=== PATIENT | male | born 1965 | race Caucasian/White ===

== ENCOUNTER 2017-06-06 16:12 | Inpatient (IN) | payer MEDICAID, MEDICARE, OTHER ==
[~2017-06-06] VITALS: Ht 177.8 cm; Wt 69.9 kg
[~2017-06-06 16:12] MED LIST: CLON1 PO; DIVA500T35 PO; FOLI1 PO; GABA-531 PO; LIDOP TD; LURA40 PO; MULT1CAP32 PO; OMEP20 PO; SERT50TA12 PO; THIA100 PO
[2017-06-06 18:01] LABS: BASOPHILS % (AUTO) 0.8 % (0.0-2.0); EOSINOPHILS % (AUTO) 1.1 % (1.0-6.0); HEMOGLOBIN 12.5 g/dL (13.5-17.5); LYMPHOCYTES # (AUTO) 4.6 K/uL (1.0-4.8); LYMPHOCYTES % (AUTO) 53.3 % (22.0-44.0); MEAN CORPUSCULAR HEMOGLOBIN 28.2 pg (26.0-34.0); MEAN CORPUSCULAR HGB CONC 33.7 G/dL (31.0-37.0); MEAN CORPUSCULAR VOLUME 84 fL (80-100); MONOCYTES # (AUTO) 0.6 K/uL (0.1-1.0); MONOCYTES % (AUTO) 7.1 % (2.0-9.0); NEUTROPHILS # (AUTO) 3.3 K/uL (1.8-7.7); NEUTROPHILS % (AUTO) 37.7 % (40.0-70.0); PLATELET COUNT (AUTO) 152 K/uL (150-450); RED BLOOD CELL COUNT(AUTO) 4.42 MIL/uL (4.50-5.90); RED CELL DISTRIBUTION WIDTH 28.1 % (11.5-14.5)
[2017-06-06 18:24] LABS: ANION GAP 15 mmol/L (8-16); CALCIUM, TOTAL 9.1 mg/dL (8.8-10.5); CARBON DIOXIDE 25 mmol/L (22-29); CHLORIDE 101 mmol/L (98-107); CREATININE 0.51 mg/dL (0.60-1.30); GLOMERULAR FILTR. RATE CALC > 60 mL/min (>60); GLUCOSE,RANDOM 98 mg/dL (70-110); POTASSIUM 3.4 mmol/L (3.5-5.1); SODIUM SERUM 141 mmol/L (136-145); UREA NITROGEN, BLOOD 8 mg/dL (7-18)
[2017-06-06 18:29] LABS: ALANINE AMINOTRANSFERASE 100 U/L (12-78); ALBUMIN 3.7 g/dL (3.4-5.0); ALKALINE PHOSPHATASE 78 U/L (46-116); ASPARTATE AMINOTRANSFERASE 84 U/L (15-37); BILIRUBIN,TOTAL 0.9 mg/dL (0.1-1.0)
[2017-06-06] MEDS ORDERED: HALOPERIDOL 5 MG TABLET PO PRN (18:45)
[2017-06-06 18:54] LABS: TOTAL PROTEIN, SERUM 7.7 g/dL (6.4-8.2)
[2017-06-06] MEDS ORDERED: CYCLOBENZAPRINE HCL 10 MG TABLET PO ONE (19:45)
[2017-06-06] MEDS ORDERED: GABAPENTIN 400 MG CAPSULE PO ONE (19:45)
[2017-06-06] MEDS ORDERED: ACETAMINOPHEN 500 MG TABLET PO ONE (19:45)
[2017-06-06 20:15] LABS: AMPHET/METH SCREEN,URINE NEGATIVE (NEGATIVE); BARBITURATE SCREEN, URINE NEGATIVE (NEGATIVE); BENZODIAZEPINES SCREEN,URINE NEGATIVE (NEGATIVE); CANNABINOID SCREEN,URINE POSITIVE (NEGATIVE); COCAINE SCREEN,URINE NEGATIVE (NEGATIVE); OPIATE SCREEN,URINE NEGATIVE (NEGATIVE)
[2017-06-06 20:20] LABS: PHENCYCLIDINE SCREEN,URINE NEGATIVE (NEGATIVE)
[2017-06-06 20:53] LABS: METHADONE SCREEN, URINE NEGATIVE (NEGATIVE)
[2017-06-06 20:57] VITALS: BP 126/97
[2017-06-06] MEDS ORDERED: ACETAMINOPHEN 325 MG TABLET PO PRN (21:15)
[2017-06-06] MEDS ORDERED: IBUPROFEN 400 MG TABLET PO PRN (21:15)
[2017-06-07] VITALS (10 sets, daily range): BP systolic 125–154; BP diastolic 65–97
[2017-06-07] MEDS: ZOLPIDEM TARTRATE 10 MG TABLET PO PRN (00:46)
[2017-06-07] MEDS: LORazepam 2 MG TABLET PO PRN ×2 (00:46→06:31)
[2017-06-07 08:12] LABS: CHOL/HDL RATIO 1.5 (4.2-7.3)
[2017-06-07] MEDS: NICOTINE 14 MG/24 HOUR PATCH TD SCH (09:12)
[2017-06-07] MEDS ORDERED: LORazepam 2 MG TABLET PO PRN (10:30)
[2017-06-07] MEDS ORDERED: LOPERAMIDE HCL 2 MG CAPSULE PO PRN (10:30)
[2017-06-07] MEDS ORDERED: HydrOXYzine PAMOATE 50 MG CAPSULE PO PRN (10:30)
[2017-06-07] MEDS ORDERED: GuaiFENesin/D-METHORPHAN [SUGAR-FREE] 200-20MG/10 ML SYRUP UDCUP PO PRN (10:30)
[2017-06-07] MEDS ORDERED: CYANOCOBALAMIN 1,000 MCG/ML VIAL IM ONE (10:30)
[2017-06-07] MEDS: MULTIVITAMINS WITH MINERALS, THERAPEUTIC TABLET PO SCH (10:45)
[2017-06-07] MEDS: SERTRALINE HCL 50 MG TABLET PO SCH (10:45)
[2017-06-07] MEDS: THIAMINE HCL 100 MG TABLET PO SCH ×2 (10:45→16:42)
[2017-06-07] MEDS: FOLIC ACID 1 MG TABLET PO SCH (10:45)
[2017-06-07] MEDS: GABAPENTIN 300 MG CAPSULE PO SCH ×2 (13:14→16:42)
[2017-06-07] MEDS ORDERED: ACETAMINOPHEN 325 MG TABLET PO PRN (20:15)
[2017-06-08] VITALS (8 sets, daily range): BP systolic 123–145; BP diastolic 75–96
[2017-06-08] MEDS: IBUPROFEN 400 MG TABLET PO PRN (03:40)
[2017-06-08 06:03] LABS: GLUCOMETER DEV NAME(LOC) 3EX 1; GLUCOSE,POINT OF CARE 139 MG/DL (70-110)
[2017-06-08 06:51] LABS: HEMOGLOBIN A1C 5.2 % (4.5-6.2)
[2017-06-08] MEDS ORDERED: LORazepam 2 MG TABLET PO PRN (07:00)
[2017-06-08 07:37] LABS: THYROID STIMULATING HORMONE 0.48 uIU/mL (0.36-3.74)
[2017-06-08] MEDS: GABAPENTIN 300 MG CAPSULE PO SCH ×3 (08:22→17:21)
[2017-06-08] MEDS: SERTRALINE HCL 50 MG TABLET PO SCH (08:22)
[2017-06-08] MEDS: FOLIC ACID 1 MG TABLET PO SCH (08:22)
[2017-06-08] MEDS: THIAMINE HCL 100 MG TABLET PO SCH ×2 (08:22→17:21)
[2017-06-08] MEDS: NICOTINE 14 MG/24 HOUR PATCH TD SCH (08:22)
[2017-06-08] MEDS: MULTIVITAMINS WITH MINERALS, THERAPEUTIC TABLET PO SCH (08:22)
[2017-06-08] MEDS: LORazepam 2 MG TABLET PO SCH ×4 (08:23→20:33)
[2017-06-08 16:58] LABS: GLUCOMETER DEV NAME(LOC) 3EX 1; GLUCOSE,POINT OF CARE 101 MG/DL (70-110)
[2017-06-09] VITALS (7 sets, daily range): BP systolic 129–132; BP diastolic 82–88
[2017-06-09] MEDS: ZOLPIDEM TARTRATE 10 MG TABLET PO PRN (00:38)
[2017-06-09 05:32] LABS: GLUCOMETER DEV NAME(LOC) 3EI B; GLUCOSE,POINT OF CARE 111 MG/DL (70-110)
[2017-06-09] MEDS: NICOTINE 14 MG/24 HOUR PATCH TD SCH (08:01)
[2017-06-09] MEDS: THIAMINE HCL 100 MG TABLET PO SCH ×2 (08:03→16:19)
[2017-06-09] MEDS: SERTRALINE HCL 50 MG TABLET PO SCH (08:03)
[2017-06-09] MEDS: FOLIC ACID 1 MG TABLET PO SCH (08:03)
[2017-06-09] MEDS: MULTIVITAMINS WITH MINERALS, THERAPEUTIC TABLET PO SCH (08:04)
[2017-06-09] MEDS: GABAPENTIN 300 MG CAPSULE PO SCH ×3 (08:04→16:19)
[2017-06-09] MEDS: LORazepam 2 MG TABLET PO SCH ×4 (08:06→20:23)
[2017-06-09] MEDS: IBUPROFEN 400 MG TABLET PO PRN (08:07)
[2017-06-09] MEDS ORDERED: CYCLOBENZAPRINE HCL 10 MG TABLET PO PRN (09:45)
[2017-06-09 16:28] LABS: GLUCOMETER DEV NAME(LOC) 3EX 1; GLUCOSE,POINT OF CARE 139 MG/DL (70-110)
[2017-06-10 06:28] LABS: GLUCOMETER DEV NAME(LOC) 3EX 1; GLUCOSE,POINT OF CARE 105 MG/DL (70-110)
[2017-06-10 06:48] VITALS: BP 134/96
[2017-06-10] MEDS ORDERED: LORazepam 1 MG TABLET PO PRN (07:00)
[2017-06-10] MEDS: MULTIVITAMINS WITH MINERALS, THERAPEUTIC TABLET PO SCH (08:36)
[2017-06-10] MEDS: SERTRALINE HCL 50 MG TABLET PO SCH (08:36)
[2017-06-10] MEDS: THIAMINE HCL 100 MG TABLET PO SCH ×2 (08:36→17:21)
[2017-06-10] MEDS: FOLIC ACID 1 MG TABLET PO SCH (08:36)
[2017-06-10] MEDS: GABAPENTIN 300 MG CAPSULE PO SCH ×3 (08:36→17:21)
[2017-06-10] MEDS: LORazepam 1 MG TABLET PO SCH ×4 (08:36→21:21)
[2017-06-10 08:45] VITALS: BP 149/88
[2017-06-10] MEDS: NICOTINE 14 MG/24 HOUR PATCH TD SCH (08:51)
[2017-06-10 09:50] VITALS: BP 132/85
[2017-06-10] MEDS ORDERED: CYCLOBENZAPRINE HCL 10 MG TABLET PO PRN (13:30)
[2017-06-10 16:32] VITALS: BP 124/76
[2017-06-10 16:33] VITALS: BP 124/76
[2017-06-10 16:43] LABS: GLUCOMETER DEV NAME(LOC) 3EX 1; GLUCOSE,POINT OF CARE 97 MG/DL (70-110)
[2017-06-11 04:30] VITALS: BP 114/83
[2017-06-11 05:58] LABS: GLUCOMETER DEV NAME(LOC) 3EI B; GLUCOSE,POINT OF CARE 123 MG/DL (70-110)
[2017-06-11] MEDS ORDERED: LORazepam 1 MG TABLET PO PRN (07:00)
[2017-06-11] MEDS: MULTIVITAMINS WITH MINERALS, THERAPEUTIC TABLET PO SCH (08:25)
[2017-06-11] MEDS: FOLIC ACID 1 MG TABLET PO SCH (08:26)
[2017-06-11] MEDS: GABAPENTIN 300 MG CAPSULE PO SCH ×3 (08:26→16:53)
[2017-06-11] MEDS: THIAMINE HCL 100 MG TABLET PO SCH ×2 (08:26→16:53)
[2017-06-11] MEDS: SERTRALINE HCL 50 MG TABLET PO SCH (08:26)
[2017-06-11] MEDS: NICOTINE 14 MG/24 HOUR PATCH TD SCH (08:27)
[2017-06-11 09:17] VITALS: BP 122/70
[2017-06-11 09:38] VITALS: BP 122/70
[2017-06-11 16:59] VITALS: BP 118/75
[2017-06-11 17:13] VITALS: BP 118/75
[2017-06-11] MEDS: IBUPROFEN 400 MG TABLET PO PRN (18:03)
[2017-06-12 00:10] VITALS: BP 120/74
[2017-06-12] MEDS: IBUPROFEN 400 MG TABLET PO PRN (05:53)
[2017-06-12] MEDS: GABAPENTIN 300 MG CAPSULE PO SCH (08:26)
[2017-06-12] MEDS: MULTIVITAMINS WITH MINERALS, THERAPEUTIC TABLET PO SCH (08:26)
[2017-06-12] MEDS: NICOTINE 14 MG/24 HOUR PATCH TD SCH (08:26)
[2017-06-12] MEDS: FOLIC ACID 1 MG TABLET PO SCH (08:27)
[2017-06-12] MEDS: THIAMINE HCL 100 MG TABLET PO SCH (08:27)
[2017-06-12] MEDS: SERTRALINE HCL 50 MG TABLET PO SCH (08:27)
[2017-06-12 10:19] VITALS: BP 126/78
[2017-06-12] MEDS ORDERED: SERT50TA12 PO (10:36)
[2017-06-12] MEDS ORDERED: GABA-531 PO (10:36)
[2017-06-12] MEDS ORDERED: FOLI1 PO (10:38)
[2017-06-12] MEDS ORDERED: MV-M1TAB2 PO (10:38)
[2017-06-12] MEDS ORDERED: THIA100 PO (10:39)
== END 2017-06-12 12:00 | DRG 885 ==
LOC: EMS 16:24 → 3EX 19:27
DX: F33.2 Major depressive disorder, recurrent severe without psychotic features (principal); R45.851 Suicidal ideations; G54.6 Phantom limb syndrome with pain; E11.9 Type 2 diabetes mellitus without complications; D64.9 Anemia, unspecified; E87.6 Hypokalemia; F10.239 Alcohol dependence with withdrawal, unspecified; T40.1X1A Poisoning by heroin, accidental (unintentional), initial encounter; F12.10 Cannabis abuse, uncomplicated; F17.200 Nicotine dependence, unspecified, uncomplicated; G89.29 Other chronic pain; I10 Essential (primary) hypertension; F41.9 Anxiety disorder, unspecified; G47.00 Insomnia, unspecified; M19.90 Unspecified osteoarthritis, unspecified site; R74.0 Nonspecific elevation of levels of transaminase and lactic acid dehydrogenase [LDH]; Z87.820 Personal history of traumatic brain injury; Z59.0 Homelessness; Z79.899 Other long term (current) drug therapy; Z89.512 Acquired absence of left leg below knee; Z91.5 Personal history of self-harm; Z71.51 Drug abuse counseling and surveillance of drug abuser; Z71.6 Tobacco abuse counseling
CPT/HCPCS: 80074; 82962; 83036; 84443; 97110; 97161; 97165; 97530; 97535; 99285; G0480; J3420

== ENCOUNTER 2022-08-01 19:07 | Emergency (ER) | payer MEDICARE, OTHER ==
[~2022-08-01] VITALS: Ht 167.6 cm; Wt 77.0 kg
[~2022-08-01 19:07] MED LIST changes: -CLON1 PO; -DIVA500T35 PO; +FOLI-130 PO; -FOLI1 PO; +GABA-1181 PO; -GABA-531 PO; -LIDOP TD; -LURA40 PO; -MULT1CAP32 PO; +MV-M1TAB2 PO; -OMEP20 PO; +SERT-158 PO; -SERT50TA12 PO; -THIA100 PO; +THIAMINE HCL100 MG PO
[2022-08-01] MEDS ORDERED: ACETAMINOPHEN 325 MG TABLET PO ONE (21:00)
[2022-08-01 21:39] VITALS: BP 150/90
== END 2022-08-01 21:40 | disposition home or self-care (01) ==
LOC: EMS 19:16
DX: F10.10 Alcohol abuse, uncomplicated (principal); F41.9 Anxiety disorder, unspecified; M19.90 Unspecified osteoarthritis, unspecified site; F32.A Depression, unspecified; E11.9 Type 2 diabetes mellitus without complications; F17.210 Nicotine dependence, cigarettes, uncomplicated; F12.90 Cannabis use, unspecified, uncomplicated; Z98.890 Other specified postprocedural states
CPT/HCPCS: 99283

== ENCOUNTER 2024-01-15 07:26 | Inpatient (IN) | payer MEDICARE, MEDICAID ==
[~2024-01-15] VITALS: Ht 177.8 cm; Wt 72.7 kg
[2024-01-15 10:01] LABS: COVID AG,FIA SOURCE NASAL SWAB
[2024-01-15 10:17] LABS: BASOPHILS % (AUTO) 0.6 % (0.0-2.0); EOSINOPHILS % (AUTO) 2.3 % (1.0-6.0); HEMATOCRIT 38.1 % (41-53); HEMOGLOBIN 12.3 g/dL (13.5-17.5); LYMPHOCYTES # (AUTO) 1.9 K/uL (1.0-4.8); LYMPHOCYTES % (AUTO) 33.9 % (22.0-44.0); MEAN CORPUSCULAR HEMOGLOBIN 29.3 pg (26.0-34.0); MEAN CORPUSCULAR HGB CONC 32.3 G/dL (31.0-37.0); MEAN CORPUSCULAR VOLUME 91 fL (80-100); MONOCYTES # (AUTO) 0.9 K/uL (0.1-1.0); MONOCYTES % (AUTO) 15.2 % (2.0-9.0); NEUTROPHILS # (AUTO) 2.7 K/uL (1.8-7.7); PLATELET COUNT (AUTO) 196 K/uL (150-450); RED CELL DISTRIBUTION WIDTH 26.8 % (11.5-14.5); WHITE BLOOD COUNT (AUTO) 5.7 K/uL (4.5-11.0)
[2024-01-15 10:18] LABS: RBC MORPHOLOGY COMMENT ABNORMAL RBC MORPH
[2024-01-15 10:25] LABS: SARS-COV2 (COVID) ANTIGEN,FIA Negative (Negative)
[2024-01-15 10:30] LABS: ANION GAP 16 mmol/L (8-16); CALCIUM, TOTAL 8.9 mg/dL (8.8-10.5); CARBON DIOXIDE 21 mmol/L (22-29); CHLORIDE 105 mmol/L (98-107); CREATININE 0.92 mg/dL (0.60-1.30); GLOMERULAR FILTR. RATE CALC > 60 mL/min (>60); GLUCOSE,RANDOM 88 mg/dL (70-110); POTASSIUM 4.6 mmol/L (3.5-5.1); SODIUM SERUM 142 mmol/L (136-145); UREA NITROGEN, BLOOD 19 mg/dL (7-18)
[2024-01-15 10:51] LABS: ALCOHOL, BLOOD (SERUM) 272 mg/dL (0-10)
[2024-01-15] MEDS ORDERED: LOPERAMIDE HCL 2 MG CAPSULE PO PRN (13:45)
[2024-01-15] MEDS ORDERED: MAGNESIUM HYDROXIDE SUSPENSION 30 ML UDCUP PO PRN (13:45)
[2024-01-15] MEDS ORDERED: LORazepam 2 MG TABLET PO PRN (13:45)
[2024-01-15] MEDS ORDERED: PROMETHAZINE HCL 25 MG TABLET PO PRN (13:45)
[2024-01-15] MEDS ORDERED: MAG HYDROX/ALUMINUM HYD/SIMETH ES 30 ML SUSPENSION UDCUP PO PRN (13:45)
[2024-01-15] MEDS ORDERED: LEVE10006 PO (14:23)
[2024-01-15] MEDS ORDERED: ATOR40TA71 PO (14:23)
[2024-01-15] MEDS ORDERED: THIA100T92 PO (14:23)
[2024-01-15] MEDS ORDERED: AMLO5TAB66 PO (14:23)
[2024-01-15] MEDS ORDERED: OMEP20CA12 PO (14:23)
[2024-01-15] MEDS ORDERED: CARV6.2534 PO (14:23)
[2024-01-15] MEDS ORDERED: ASPI-1444 PO (14:23)
[2024-01-15] MEDS ORDERED: CYCL10TA16 PO (14:29)
[2024-01-15] MEDS ORDERED: MULT-1366 PO (14:29)
[2024-01-15] MEDS ORDERED: FERR-72 PO (14:29)
[2024-01-15] MEDS: LORazepam 2 MG TABLET PO PRN (14:42)
[2024-01-15] MEDS: AmLODIPine BESYLATE 5 MG TABLET PO ONE (14:42)
[2024-01-15] MEDS: OLANZapine 5 MG RAPDIS TABLET PO PRN (14:42)
[2024-01-15] MEDS: CARVEDILOL 6.25 MG TABLET PO ONE (14:42)
[2024-01-15 15:32] LABS: PH,URINE DRUG SCREEN 5.5 (5.0-8.0)
[2024-01-15 15:40] LABS: ALCOHOL, URINE DRUG SCREEN POSITIVE (NEGATIVE); AMPHET/METH SCREEN,URINE NEGATIVE (NEGATIVE); BARBITURATE SCREEN, URINE NEGATIVE (NEGATIVE); BENZODIAZEPINES SCREEN,URINE NEGATIVE (NEGATIVE); CANNABINOID SCREEN,URINE NEGATIVE (NEGATIVE); COCAINE SCREEN,URINE NEGATIVE (NEGATIVE); METHADONE SCREEN, URINE NEGATIVE (NEGATIVE); OPIATE SCREEN,URINE NEGATIVE (NEGATIVE); PHENCYCLIDINE SCREEN,URINE NEGATIVE (NEGATIVE)
[2024-01-15] MEDS: GABAPENTIN 300 MG CAPSULE PO SCH (19:40)
[2024-01-15] MEDS: TUBERCULIN, PURIFIED PROTEIN DERIVATIVE 5 TU/0.1 ML SYRINGE ID ONE (20:00)
[2024-01-15] MEDS: MELATONIN 5 MG TABLET PO SCH (21:59)
[2024-01-15 23:05] VITALS: O2SAT 95
[2024-01-16] VITALS (9 sets, daily range): BP systolic 129–163; BP diastolic 73–96; PULSE 18–80; RESP 18; TEMP 97.1–98.2; O2SAT 96–98
[2024-01-16] MEDS: ACETAMINOPHEN 325 MG TABLET PO PRN (06:52)
[2024-01-16] MEDS ORDERED: LORazepam 2 MG TABLET PO PRN (07:00)
[2024-01-16] MEDS: OMEGA-3/DHA/EPA/FISH OIL 1,000 MG CAPSULE PO SCH (08:30)
[2024-01-16] MEDS: LORazepam 2 MG TABLET PO SCH (08:31)
[2024-01-16] MEDS: NALTREXONE HCL 50 MG TABLET PO SCH (08:32)
[2024-01-16] MEDS: DULoxetine HCL 20 MG CAPSULE PO SCH (08:37)
[2024-01-16] MEDS ORDERED: OMEGA-3/DHA/EPA/FISH OIL 1,000 MG CAPSULE PO SCH (09:00)
[2024-01-16] MEDS ORDERED: NALTREXONE HCL 50 MG TABLET PO SCH (09:00)
[2024-01-16] MEDS ORDERED: DULoxetine HCL 20 MG CAPSULE PO SCH (09:00)
[2024-01-16] MEDS ORDERED: CYCLOBENZAPRINE HCL 10 MG TABLET PO PRN (11:00)
[2024-01-16] MEDS: LevETIRAcetam 500 MG TABLET PO SCH (16:56)
[2024-01-16] MEDS: CARVEDILOL 6.25 MG TABLET PO SCH (16:58)
[2024-01-17] MEDS: ZOLPIDEM TARTRATE 10 MG TABLET PO PRN (02:52)
[2024-01-17] MEDS: FERROUS SULFATE 325 MG EC TABLET PO SCH (06:02)
[2024-01-17 08:46] VITALS: BP 145/80; PULSE 62; RESP 18; TEMP 97.4; O2SAT 98
[2024-01-17] MEDS: OMEPRAZOLE 20 MG CAPSULE PO SCH (10:13)
[2024-01-17] MEDS: AmLODIPine BESYLATE 5 MG TABLET PO SCH (10:13)
[2024-01-17] MEDS: ATORVASTATIN CALCIUM 40 MG TABLET PO SCH (10:13)
[2024-01-17] MEDS: ASPIRIN 81 MG DR TABLET PO SCH (10:14)
[2024-01-17 13:00] VITALS: BP 145/80; PULSE 79; RESP 18; TEMP 97.4; O2SAT 98
[2024-01-17 16:41] VITALS: BP 144/80; RESP 18; O2SAT 98
[2024-01-17 20:33] VITALS: BP 142/80; PULSE 70; RESP 18; TEMP 97.8; O2SAT 98
[2024-01-18 06:58] VITALS: BP 140/83; PULSE 75; RESP 16; TEMP 97.7; O2SAT 99
[2024-01-18] MEDS ORDERED: LORazepam 1 MG TABLET PO PRN (07:00)
[2024-01-18 08:09] VITALS: BP 144/96; PULSE 68; RESP 19; TEMP 97.2; O2SAT 98
[2024-01-18] MEDS: LORazepam 1 MG TABLET PO SCH (09:21)
[2024-01-18] MEDS: GABAPENTIN 400 MG CAPSULE PO SCH (17:02)
[2024-01-18 20:39] VITALS: BP 128/75; PULSE 17; RESP 17; TEMP 97.8; O2SAT 97
[2024-01-19] MEDS ORDERED: LORazepam 1 MG TABLET PO PRN (07:00)
[2024-01-19 08:44] VITALS: BP 121/86; PULSE 75; RESP 16; TEMP 97.7; O2SAT 97
[2024-01-19] MEDS: DULoxetine HCL 30 MG CAPSULE PO SCH (09:03)
[2024-01-19] MEDS ORDERED: MELA5TAB40 PO (12:04)
[2024-01-19] MEDS ORDERED: OMEG100033 PO (12:04)
[2024-01-19] MEDS ORDERED: NALT50TA33 PO (12:04)
[2024-01-19] MEDS ORDERED: LEVE-71 PO (12:04)
[2024-01-19] MEDS ORDERED: GABA-1201 PO (12:04)
[2024-01-19] MEDS ORDERED: DULO-114 PO (12:04)
== END 2024-01-19 15:20 | disposition home or self-care (01) | DRG 885 ==
LOC: EMS 07:26 → B2S 01-16 00:39 → B2X 01-19 09:45
PROVIDERS: ADMIT Psychiatry & Neurology Psychiatry; ATTEND Psychiatry & Neurology Psychiatry
PROC: GZHZZZZ Group Psychotherapy (ICD-10-PCS; principal; 2024-01-17)
PROC: GZ58ZZZ Individual Psychotherapy, Cognitive-Behavioral (ICD-10-PCS; 2024-01-17)
DX: F33.2 Major depressive disorder, recurrent severe without psychotic features (principal); F10.229 Alcohol dependence with intoxication, unspecified; R45.851 Suicidal ideations; Z59.00 Homelessness unspecified; D64.9 Anemia, unspecified; I10 Essential (primary) hypertension; E78.5 Hyperlipidemia, unspecified; Z20.822 Contact with and (suspected) exposure to COVID-19; K21.9 Gastro-esophageal reflux disease without esophagitis; E11.42 Type 2 diabetes mellitus with diabetic polyneuropathy; F17.200 Nicotine dependence, unspecified, uncomplicated; F41.9 Anxiety disorder, unspecified; J44.9 Chronic obstructive pulmonary disease, unspecified; G47.00 Insomnia, unspecified; Z89.512 Acquired absence of left leg below knee
CPT/HCPCS: 80048; 80307; 85025; 99285; G0480

== ENCOUNTER 2024-01-24 22:27 | Emergency (ER) | payer OTHER ==
[~2024-01-24] VITALS: Ht 175.3 cm; Wt 77.3 kg
[~2024-01-24 22:27] MED LIST changes: +AMLO5TAB66 PO; +ASPI-1444 PO; +ATOR40TA71 PO; +CARV6.2534 PO; +CYCL10TA16 PO; +DULO-114 PO; +FERR-72 PO; -FOLI-130 PO; -GABA-1181 PO; +GABA-1201 PO; +LEVE-71 PO; +MELA5TAB40 PO; +MULT-1366 PO; -MV-M1TAB2 PO; +NALT50TA33 PO; +OMEG100033 PO; +OMEP20CA12 PO; -SERT-158 PO; +THIA100T92 PO; -THIAMINE HCL100 MG PO
[2024-01-24 22:48] VITALS: BP 162/84; PULSE 79; RESP 18; TEMP 98.3; O2SAT 97
[2024-01-25] MEDS: PERTUSS(ACELL),DIPH,TET/PF 0.5 ML SYRINGE [ADULT] IM. ONE (01:38)
[2024-01-25 01:39] LABS: BASOPHILS % (AUTO) 0.6 % (0.0-2.0); EOSINOPHILS % (AUTO) 0.8 % (1.0-6.0); HEMATOCRIT 34.6 % (41-53); HEMOGLOBIN 11.5 g/dL (13.5-17.5); LYMPHOCYTES # (AUTO) 2.7 K/uL (1.0-4.8); LYMPHOCYTES % (AUTO) 36.9 % (22.0-44.0); MEAN CORPUSCULAR HEMOGLOBIN 29.8 pg (26.0-34.0); MEAN CORPUSCULAR HGB CONC 33.2 G/dL (31.0-37.0); MEAN CORPUSCULAR VOLUME 90 fL (80-100); MONOCYTES % (AUTO) 14.2 % (2.0-9.0); NEUTROPHILS # (AUTO) 3.4 K/uL (1.8-7.7); NEUTROPHILS % (AUTO) 47.5 % (40.0-70.0); PLATELET COUNT (AUTO) 247 K/uL (150-450); RED BLOOD CELL COUNT(AUTO) 3.86 MIL/uL (4.50-5.90); RED CELL DISTRIBUTION WIDTH 26.9 % (11.5-14.5); WHITE BLOOD COUNT (AUTO) 7.2 K/uL (4.5-11.0)
[2024-01-25 01:50] LABS: ANION GAP 14 mmol/L (8-16); CALCIUM, TOTAL 8.4 mg/dL (8.8-10.5); CARBON DIOXIDE 25 mmol/L (22-29); CHLORIDE 100 mmol/L (98-107); CREATININE 0.59 mg/dL (0.60-1.30); GLOMERULAR FILTR. RATE CALC > 60 mL/min (>60); GLUCOSE,RANDOM 79 mg/dL (70-110); SODIUM SERUM 139 mmol/L (136-145); UREA NITROGEN, BLOOD 6 mg/dL (7-18)
[2024-01-25 01:52] LABS: POTASSIUM 2.9 mmol/L (3.5-5.1)
[2024-01-25] MEDS ORDERED: POTASSIUM CHLORIDE 20 MEQ ER TABLET PO ONE (02:00)
[2024-01-25] MEDS: POTASSIUM CHLORIDE 10% 40 MEQ/30 ML LIQUID UDCUP PO ONE (03:14)
[2024-01-25 03:27] LABS: RBC MORPHOLOGY COMMENT DIMORPHIC RBC
== END 2024-01-25 07:05 | disposition home or self-care (01) ==
LOC: EMS 22:27
DX: S81.802A Unspecified open wound, left lower leg, initial encounter (principal); F10.129 Alcohol abuse with intoxication, unspecified; F17.210 Nicotine dependence, cigarettes, uncomplicated; F12.90 Cannabis use, unspecified, uncomplicated; E87.6 Hypokalemia; I10 Essential (primary) hypertension; Z89.512 Acquired absence of left leg below knee; X58.XXXA Exposure to other specified factors, initial encounter; Y93.89 Activity, other specified; Y92.89 Other specified places as the place of occurrence of the external cause; Y99.8 Other external cause status; Y90.6 Blood alcohol level of 120-199 mg/100 ml
CPT/HCPCS: 99283; 80048; 85025; 36415; G0480

== ENCOUNTER 2024-04-12 18:22 | Emergency (ER) | payer OTHER ==
[~2024-04-12] VITALS: Ht 162.6 cm; Wt 70.0 kg
[2024-04-13 01:00] VITALS: BP 133/71; PULSE 75; RESP 16; TEMP 97.3; O2SAT 100
== END 2024-04-13 05:38 | disposition home or self-care (01) ==
LOC: EMS 18:22
DX: F10.229 Alcohol dependence with intoxication, unspecified (principal); F41.9 Anxiety disorder, unspecified; F32.A Depression, unspecified; F12.90 Cannabis use, unspecified, uncomplicated; I10 Essential (primary) hypertension; F17.210 Nicotine dependence, cigarettes, uncomplicated; Z98.890 Other specified postprocedural states; Z99.3 Dependence on wheelchair; Z89.512 Acquired absence of left leg below knee; Z79.82 Long term (current) use of aspirin
CPT/HCPCS: 99281; Z7502

== ENCOUNTER 2024-04-16 16:25 | Inpatient (IN) | payer MEDICARE, MEDICAID ==
[~2024-04-16] VITALS: Ht 170.2 cm; Wt 65.9 kg
[2024-04-16 17:52] LABS: COVID AG,FIA SOURCE NASAL SWAB
[2024-04-16 17:55] LABS: ALCOHOL, URINE DRUG SCREEN POSITIVE (NEGATIVE); AMPHET/METH SCREEN,URINE NEGATIVE (NEGATIVE); BARBITURATE SCREEN, URINE NEGATIVE (NEGATIVE); BENZODIAZEPINES SCREEN,URINE NEGATIVE (NEGATIVE); CANNABINOID SCREEN,URINE NEGATIVE (NEGATIVE); COCAINE SCREEN,URINE NEGATIVE (NEGATIVE); METHADONE SCREEN, URINE NEGATIVE (NEGATIVE); OPIATE SCREEN,URINE NEGATIVE (NEGATIVE); PHENCYCLIDINE SCREEN,URINE NEGATIVE (NEGATIVE)
[2024-04-16] MEDS: LORazepam 2 MG/ML VIAL IM ONE (18:14)
[2024-04-16] MEDS: DiphenhydrAMINE HCL 50 MG/ML VIAL IM ONE (18:14)
[2024-04-16] MEDS: HALOPERIDOL LACTATE 5 MG/ML VIAL IM ONE (18:14)
[2024-04-16 18:15] LABS: SARS-COV2 (COVID) ANTIGEN,FIA Negative (Negative)
[2024-04-16 19:27] LABS: BASOPHILS % (AUTO) 0.8 % (0.0-2.0); EOSINOPHILS % (AUTO) 3.4 % (1.0-6.0); HEMATOCRIT 37.7 % (41-53); HEMOGLOBIN 12.6 g/dL (13.5-17.5); LYMPHOCYTES # (AUTO) 2.5 K/uL (1.0-4.8); LYMPHOCYTES % (AUTO) 55.2 % (22.0-44.0); MEAN CORPUSCULAR HEMOGLOBIN 30.7 pg (26.0-34.0); MEAN CORPUSCULAR HGB CONC 33.3 G/dL (31.0-37.0); MEAN CORPUSCULAR VOLUME 92 fL (80-100); MONOCYTES # (AUTO) 0.5 K/uL (0.1-1.0); MONOCYTES % (AUTO) 10.9 % (2.0-9.0); NEUTROPHILS # (AUTO) 1.3 K/uL (1.8-7.7); NEUTROPHILS % (AUTO) 29.7 % (40.0-70.0); PLATELET COUNT (AUTO) 239 K/uL (150-450); RED BLOOD CELL COUNT(AUTO) 4.09 MIL/uL (4.50-5.90); RED CELL DISTRIBUTION WIDTH 27.1 % (11.5-14.5); WHITE BLOOD COUNT (AUTO) 4.5 K/uL (4.5-11.0)
[2024-04-16] MEDS ORDERED: ACETAMINOPHEN 325 MG TABLET PO PRN (19:30)
[2024-04-16] MEDS ORDERED: HALOPERIDOL 5 MG TABLET PO PRN (19:30)
[2024-04-16] MEDS ORDERED: LOPERAMIDE HCL 2 MG CAPSULE PO PRN (19:30)
[2024-04-16] MEDS ORDERED: MAG HYDROX/ALUMINUM HYD/SIMETH ES 30 ML SUSPENSION UDCUP PO PRN (19:30)
[2024-04-16] MEDS ORDERED: MAGNESIUM HYDROXIDE SUSPENSION 30 ML UDCUP PO PRN (19:30)
[2024-04-16 19:34] LABS: ANION GAP 9 mmol/L (8-16); CALCIUM, TOTAL 8.4 mg/dL (8.8-10.5); CARBON DIOXIDE 27 mmol/L (22-29); CHLORIDE 104 mmol/L (98-107); CREATININE 0.75 mg/dL (0.60-1.30); GLOMERULAR FILTR. RATE CALC > 60 mL/min (>60); GLUCOSE,RANDOM 72 mg/dL (70-110); POTASSIUM 3.8 mmol/L (3.5-5.1); SODIUM SERUM 140 mmol/L (136-145); UREA NITROGEN, BLOOD 5 mg/dL (7-18)
[2024-04-16 19:38] LABS: ALCOHOL, BLOOD (SERUM) 264 mg/dL (0-10)
[2024-04-16 19:52] LABS: RBC MORPHOLOGY COMMENT ABNORMAL RBC MORPH
[2024-04-16 22:50] VITALS: O2SAT 96
[2024-04-17] VITALS (11 sets, daily range): BP systolic 109–138; BP diastolic 61–83; PULSE 59–105; RESP 16–18; TEMP 96.9–97.2; O2SAT 95–97
[2024-04-17] MEDS: INFLUENZA VIRUS VACCINE TVS (6MO+) 2024-25/PF 45 MCG/0.5 ML SYRINGE IM. ONE (03:45)
[2024-04-17] MEDS ORDERED: ONDANSETRON 4 MG TABLET PO PRN (10:00)
[2024-04-17] MEDS ORDERED: PETROLATUM,WHITE 28 GM JELLY TP PRN (10:00)
[2024-04-17] MEDS ORDERED: GuaiFENesin/D-METHORPHAN [SUGAR-FREE] 200-20MG/10 ML SYRUP UDCUP PO PRN (10:00)
[2024-04-17] MEDS ORDERED: CloNIDine HCL 0.1 MG TABLET PO PRN (10:00)
[2024-04-17] MEDS ORDERED: MAGNESIUM HYDROXIDE SUSPENSION 30 ML UDCUP PO PRN (10:00)
[2024-04-17] MEDS ORDERED: ALBUTEROL SULFATE HFA 90 MCG/PUFF 8 GM INHALER IH PRN (10:00)
[2024-04-17] MEDS ORDERED: ACETAMINOPHEN 325 MG TABLET PO PRN (10:00)
[2024-04-17] MEDS ORDERED: MAG HYDROX/ALUMINUM HYD/SIMETH ES 30 ML SUSPENSION UDCUP PO PRN (10:00)
[2024-04-17] MEDS ORDERED: DOCUSATE SODIUM 100 MG CAPSULE PO PRN (10:00)
[2024-04-17] MEDS ORDERED: LOPERAMIDE HCL 2 MG CAPSULE PO PRN (10:00)
[2024-04-17] MEDS: DULoxetine HCL 60 MG CAPSULE PO SCH (13:25)
[2024-04-18] VITALS (7 sets, daily range): BP systolic 123–139; BP diastolic 64–94; PULSE 61–68; RESP 17–18; TEMP 97.3–98.1; O2SAT 96
[2024-04-18] MEDS: LORazepam 2 MG TABLET PO PRN (09:55)
[2024-04-18] MEDS: NICOTINE 14 MG/24 HOUR PATCH TD PRN (10:19)
[2024-04-18] MEDS: CARVEDILOL 3.125 MG TABLET PO SCH (17:20)
[2024-04-18] MEDS: CYCLOBENZAPRINE HCL 10 MG TABLET PO SCH (20:06)
[2024-04-18] MEDS: ZOLPIDEM TARTRATE 10 MG TABLET PO PRN (21:17)
[2024-04-19 00:12] VITALS: BP 127/64; PULSE 64; RESP 18; TEMP 97.5; O2SAT 96
[2024-04-19] MEDS: ASPIRIN 81 MG CHEWABLE TABLET PO SCH (06:08)
[2024-04-19] MEDS: FERROUS SULFATE 325 MG EC TABLET PO SCH (06:08)
[2024-04-19] MEDS: IBUPROFEN 400 MG TABLET PO PRN (06:15)
[2024-04-19 06:47] VITALS: BP 161/90; PULSE 65; RESP 18; TEMP 97.7; O2SAT 98
[2024-04-19 07:15] VITALS: BP 135/83; PULSE 70; RESP 18; TEMP 97.2; O2SAT 99
[2024-04-19 08:53] VITALS: BP 135/83; PULSE 70; RESP 18; TEMP 97.2; O2SAT 99
[2024-04-19] MEDS: THIAMINE 100 MG TABLET PO SCH (09:33)
[2024-04-19] MEDS: AmLODIPine BESYLATE 5 MG TABLET PO SCH (09:34)
[2024-04-19] MEDS: OMEPRAZOLE 20 MG CAPSULE PO SCH (09:34)
[2024-04-19] MEDS: MULTIVITAMINS WITH MINERALS, THERAPEUTIC TABLET PO SCH (09:35)
[2024-04-19 10:23] LABS: APPEARANCE,URINE CLEAR (CLEAR); BILIRUBIN,URINE NEGATIVE (NEGATIVE); COLOR,URINE YELLOW (YELLOW); GLUCOSE, URINE (UA) NEGATIVE (NEGATIVE); KETONES,URINE NEGATIVE (NEGATIVE); LEUKOCYTE ESTERASE ,URINE NEGATIVE (NEGATIVE); NITRATE,URINE NEGATIVE (NEGATIVE); OCCULT BLOOD,URINE NEGATIVE (NEGATIVE); PH,URINE 7.5 (5.0-8.0); PH,URINE DRUG SCREEN 7.5 (5.0-8.0); PROTEIN,URINE NEGATIVE (NEGATIVE); SPECIFIC GRAVITIY, URINE 1.016 (1.003-1.030); UROBILINOGEN,URINE <=1.0 mg/dL (<=1.0)
[2024-04-19 10:37] LABS: ALCOHOL, URINE DRUG SCREEN NEGATIVE (NEGATIVE); AMPHET/METH SCREEN,URINE NEGATIVE (NEGATIVE); BARBITURATE SCREEN, URINE NEGATIVE (NEGATIVE); BENZODIAZEPINES SCREEN,URINE NEGATIVE (NEGATIVE); CANNABINOID SCREEN,URINE NEGATIVE (NEGATIVE); COCAINE SCREEN,URINE NEGATIVE (NEGATIVE); METHADONE SCREEN, URINE NEGATIVE (NEGATIVE); OPIATE SCREEN,URINE NEGATIVE (NEGATIVE); PHENCYCLIDINE SCREEN,URINE NEGATIVE (NEGATIVE)
[2024-04-19 12:08] VITALS: BP 135/83; PULSE 70; RESP 18; TEMP 97.2; O2SAT 99
[2024-04-19 20:42] VITALS: BP 142/88; PULSE 64; RESP 18; TEMP 97.6; O2SAT 99
[2024-04-20 00:23] VITALS: BP 142/88; PULSE 64; RESP 18; TEMP 97.6; O2SAT 99
[2024-04-20 09:05] VITALS: BP 138/83; PULSE 66; RESP 16; TEMP 97.7; O2SAT 100
[2024-04-20 09:15] VITALS: BP 138/83; PULSE 66; RESP 16; TEMP 97.7; O2SAT 100
[2024-04-20] MEDS: LevETIRAcetam 500 MG TABLET PO SCH (18:34)
[2024-04-20 20:08] VITALS: BP 136/81; PULSE 81; RESP 16; TEMP 97.2; O2SAT 95
[2024-04-21 08:30] VITALS: BP 132/82; PULSE 64; RESP 18; TEMP 97.4; O2SAT 98
[2024-04-21 08:41] VITALS: RESP 16
[2024-04-21 09:25] VITALS: BP 132/82; PULSE 78; RESP 18; TEMP 97.4; O2SAT 97
[2024-04-21] MEDS ORDERED: CYCL-448 PO (10:16)
[2024-04-21] MEDS ORDERED: CARV3 PO (10:16)
[2024-04-21] MEDS ORDERED: ASPI-1450 PO (10:16)
[2024-04-21] MEDS ORDERED: LEVE-71 PO (10:16)
[2024-04-21] MEDS ORDERED: AMLO-257 PO (10:16)
[2024-04-21] MEDS ORDERED: DULO-113 PO (10:16)
[2024-04-21] MEDS ORDERED: FERR325T27 PO (10:16)
[2024-04-21] MEDS ORDERED: OMEP20 PO (10:16)
== END 2024-04-21 11:45 | disposition home or self-care (01) | DRG 885 ==
LOC: EMS 16:27 → B2X 23:57 → UNDOADMIN 23:57 → B2X 04-17 → UNDOADMIN 04-17 11:59 → B2X 04-17 11:59 → UNDOADMIN 04-17 23:59 → B2X 04-17 23:59 → UNDODISIN 04-21 11:45
PROVIDERS: ADMIT Psychiatry & Neurology Psychiatry; ATTEND Psychiatry & Neurology Psychiatry
PROC: GZHZZZZ Group Psychotherapy (ICD-10-PCS; principal; 2024-04-17)
DX: F33.2 Major depressive disorder, recurrent severe without psychotic features (principal); R45.851 Suicidal ideations; F10.20 Alcohol dependence, uncomplicated; I10 Essential (primary) hypertension; Z20.822 Contact with and (suspected) exposure to COVID-19; E78.5 Hyperlipidemia, unspecified; R56.9 Unspecified convulsions; Y90.8 Blood alcohol level of 240 mg/100 ml or more; F17.210 Nicotine dependence, cigarettes, uncomplicated; F41.9 Anxiety disorder, unspecified; G47.00 Insomnia, unspecified; G62.9 Polyneuropathy, unspecified; F12.90 Cannabis use, unspecified, uncomplicated; Z78.1 Physical restraint status; Z89.512 Acquired absence of left leg below knee; Z91.51 Personal history of suicidal behavior; M19.90 Unspecified osteoarthritis, unspecified site
CPT/HCPCS: 80048; 80307; 81003; 85025; 99285; G0480; J1200; J1630; J2060

== ENCOUNTER 2024-09-12 12:54 | Inpatient (IN) | payer MEDICARE, MEDICAID ==
[~2024-09-12] VITALS: Ht 170.2 cm; Wt 93.0 kg
[~2024-09-12 12:54] MED LIST changes: +AMLO-257 PO; -AMLO5TAB66 PO; -ASPI-1444 PO; +ASPI-1450 PO; -ATOR40TA71 PO; +CARV-165 PO; -CARV6.2534 PO; +CYCL-448 PO; -CYCL10TA16 PO; -DULO-114 PO; +DULO60CA98 PO; -FERR-72 PO; +FERR325T27 PO; -GABA-1201 PO; -MELA5TAB40 PO; -MULT-1366 PO; -NALT50TA33 PO; -OMEG100033 PO; +OMEP-148 PO; -OMEP20CA12 PO; -THIA100T92 PO
[2024-09-12] MEDS ORDERED: ZOLPIDEM TARTRATE 10 MG TABLET PO PRN (13:30)
[2024-09-12 15:26] VITALS: BP 143/78; PULSE 74; RESP 18; TEMP 97.5; O2SAT 98
[2024-09-12] MEDS: LevETIRAcetam 500 MG TABLET PO SCH (18:09)
[2024-09-12] MEDS: carvediloL 6.25 MG TABLET PO SCH (18:09)
[2024-09-12 20:17] VITALS: BP 136/89; PULSE 68; RESP 20; TEMP 97.9; O2SAT 98
[2024-09-12] MEDS: ATORVASTATIN CALCIUM 40 MG TABLET PO SCH (20:32)
[2024-09-13] MEDS: DOCUSATE SODIUM 100 MG CAPSULE PO SCH (08:51)
[2024-09-13] MEDS: PANTOPRAZOLE SODIUM 40 MG DR TABLET PO SCH (08:51)
[2024-09-13] MEDS: ASPIRIN 81 MG CHEWABLE TABLET PO SCH (08:53)
[2024-09-13] MEDS: AmLODIPine BESYLATE 5 MG TABLET PO SCH (08:53)
[2024-09-13 09:10] LABS: HEMOGLOBIN A1C 5.1 % (3.8-5.6)
[2024-09-13 09:21] LABS: CHOL/HDL RATIO 5.6 (4.2-7.3)
[2024-09-13 11:09] VITALS: BP 130/95; PULSE 78; RESP 16; TEMP 97.6; O2SAT 96
[2024-09-13 22:09] VITALS: BP 113/76; PULSE 68; RESP 18; TEMP 96.3; O2SAT 97
[2024-09-14 08:30] VITALS: BP 134/80; PULSE 60; RESP 19; TEMP 98.2; O2SAT 98
[2024-09-14 17:07] VITALS: BP 125/82; PULSE 62; RESP 18; O2SAT 99
[2024-09-14 20:52] VITALS: BP 147/100; PULSE 60; RESP 18; TEMP 97.5; O2SAT 95
[2024-09-14] MEDS: ACETAMINOPHEN 325 MG TABLET PO ONE (20:55)
[2024-09-14 21:55] VITALS: BP 135/88; PULSE 87; RESP 18; TEMP 98; O2SAT 96
[2024-09-15] MEDS: DULoxetine HCL 60 MG CAPSULE PO SCH (09:31)
[2024-09-15 09:48] VITALS: BP 123/74; PULSE 62; RESP 18; TEMP 97.6; O2SAT 98
[2024-09-15] MEDS ORDERED: MAG HYDROX/ALUMINUM HYD/SIMETH ES 30 ML SUSPENSION UDCUP PO PRN (20:00)
[2024-09-15] MEDS ORDERED: LOPERAMIDE HCL 2 MG CAPSULE PO PRN (20:00)
[2024-09-15] MEDS ORDERED: ACETAMINOPHEN 325 MG TABLET PO PRN (20:00)
[2024-09-15] MEDS ORDERED: ONDANSETRON 4 MG TABLET PO PRN (20:00)
[2024-09-15] MEDS ORDERED: DOCUSATE SODIUM 100 MG CAPSULE PO PRN (20:00)
[2024-09-15] MEDS ORDERED: NICOTINE 14 MG/24 HOUR PATCH TD PRN (20:00)
[2024-09-15] MEDS ORDERED: ALBUTEROL SULFATE HFA 90 MCG/PUFF 8 GM INHALER IH PRN (20:00)
[2024-09-15] MEDS ORDERED: GuaiFENesin/D-METHORPHAN [SUGAR-FREE] 200-20MG/10 ML SYRUP UDCUP PO PRN (20:00)
[2024-09-15] MEDS ORDERED: MAGNESIUM HYDROXIDE SUSPENSION 30 ML UDCUP PO PRN (20:00)
[2024-09-15] MEDS ORDERED: PETROLATUM,WHITE 28 GM JELLY TP PRN (20:00)
[2024-09-15] MEDS ORDERED: CloNIDine HCL 0.1 MG TABLET PO PRN (20:00)
[2024-09-15 20:38] VITALS: BP 140/76; PULSE 57; RESP 19; TEMP 97.3; O2SAT 97
[2024-09-15] MEDS: IBUPROFEN 400 MG TABLET PO PRN (20:40)
[2024-09-15 21:40] VITALS: RESP 18
[2024-09-16 07:32] LABS: BASOPHILS % (AUTO) 0.8 % (0.0-2.0); EOSINOPHILS % (AUTO) 4.7 % (1.0-6.0); HEMATOCRIT 38.5 % (41-53); HEMOGLOBIN 13.1 g/dL (13.5-17.5); LYMPHOCYTES # (AUTO) 1.7 K/uL (1.0-4.8); LYMPHOCYTES % (AUTO) 28.8 % (22.0-44.0); MEAN CORPUSCULAR HEMOGLOBIN 27.6 pg (26.0-34.0); MEAN CORPUSCULAR HGB CONC 34.1 G/dL (31.0-37.0); MEAN CORPUSCULAR VOLUME 81 fL (80-100); MONOCYTES # (AUTO) 0.9 K/uL (0.1-1.0); MONOCYTES % (AUTO) 15.1 % (2.0-9.0); NEUTROPHILS % (AUTO) 50.6 % (40.0-70.0); PLATELET COUNT (AUTO) 297 K/uL (150-450); RED BLOOD CELL COUNT(AUTO) 4.77 MIL/uL (4.50-5.90); RED CELL DISTRIBUTION WIDTH 24.1 % (11.5-14.5)
[2024-09-16 08:07] LABS: HEMOGLOBIN A1C 5.2 % (3.8-5.6)
[2024-09-16 08:14] LABS: ALANINE AMINOTRANSFERASE 20 U/L (12-78); ALBUMIN 3.6 g/dL (3.4-5.0); ALKALINE PHOSPHATASE 60 U/L (46-116); ANION GAP 8 mmol/L (8-16); ASPARTATE AMINOTRANSFERASE 22 U/L (15-37); BILIRUBIN,TOTAL 0.4 mg/dL (0.1-1.0); CALCIUM, TOTAL 9.1 mg/dL (8.8-10.5); CARBON DIOXIDE 28 mmol/L (22-29); CHLORIDE 100 mmol/L (98-107); CHOL/HDL RATIO 4.3 (4.2-7.3); CHOLESTEROL 177 mg/dL (131-200); CREATININE 0.81 mg/dL (0.60-1.30); GLOMERULAR FILTR. RATE CALC > 60 mL/min (>60); GLUCOSE,RANDOM 96 mg/dL (70-110); HDL CHOLESTEROL 41 mg/dL (40-60); LDL CHOL (CALC.) 118 mg/dL (0-130); SODIUM SERUM 136 mmol/L (136-145); TOTAL PROTEIN, SERUM 7.6 g/dL (6.4-8.2); TRIGLYCERIDES 91 mg/dL (15-150); UREA NITROGEN, BLOOD 15 mg/dL (7-18)
[2024-09-16 08:58] LABS: RBC MORPHOLOGY COMMENT ABNORMAL RBC MORPH
[2024-09-16 12:54] VITALS: BP 111/87; PULSE 61; RESP 17; TEMP 97.1; O2SAT 97
[2024-09-16 22:30] VITALS: BP 137/78; PULSE 64; RESP 18; TEMP 97.5; O2SAT 98
[2024-09-17 14:57] VITALS: BP 135/87; PULSE 89; RESP 18; TEMP 97.5; O2SAT 98
[2024-09-17 16:48] VITALS: BP 138/72; PULSE 76; RESP 18
[2024-09-18 09:51] VITALS: BP 150/81; PULSE 59; RESP 18; O2SAT 98
[2024-09-18 16:39] VITALS: BP 132/76; PULSE 66; RESP 18
[2024-09-18 20:00] VITALS: BP 132/81; PULSE 61; RESP 19; TEMP 97.9; O2SAT 98
[2024-09-19 11:07] VITALS: BP 143/90; PULSE 68; RESP 17; TEMP 97.7; O2SAT 98
[2024-09-19 22:08] VITALS: BP 133/83; PULSE 68; RESP 18; TEMP 97.2; O2SAT 94
[2024-09-20 10:56] VITALS: RESP 18
[2024-09-20 23:49] VITALS: BP 106/61; PULSE 61; RESP 18; TEMP 97.9; O2SAT 96
[2024-09-22 14:37] VITALS: BP 107/71; PULSE 68; RESP 18; TEMP 98; O2SAT 97
[2024-09-22 22:41] VITALS: RESP 18
[2024-09-23 14:12] VITALS: RESP 18
[2024-09-23 22:20] VITALS: BP 125/78; PULSE 63; RESP 18; TEMP 97.5; O2SAT 97
[2024-09-24 16:51] VITALS: BP 129/89; PULSE 60; RESP 18
[2024-09-24 22:44] VITALS: BP 137/89; PULSE 63; RESP 18; TEMP 97.5; O2SAT 99
[2024-09-25 09:22] VITALS: RESP 16
[2024-09-25] MEDS: LORazepam 2 MG TABLET PO PRN (12:34)
[2024-09-25 21:04] VITALS: BP 144/92; PULSE 60; RESP 18; TEMP 97.3; O2SAT 99
[2024-09-26] MEDS: carvediloL 3.125 MG TABLET PO SCH (08:14)
[2024-09-26 09:06] VITALS: RESP 18
[2024-09-26 21:41] VITALS: RESP 18; TEMP 97.2
[2024-09-27 08:00] VITALS: BP 114/79; PULSE 59; RESP 16; O2SAT 16
[2024-09-28 06:07] VITALS: BP 133/94; PULSE 64; RESP 17; TEMP 97.1; O2SAT 97
[2024-09-28 09:21] VITALS: RESP 18
[2024-09-29 02:00] VITALS: BP 121/94; PULSE 63; RESP 18; TEMP 97.5; O2SAT 100
[2024-09-29 10:40] VITALS: BP 128/86; PULSE 72; RESP 18; TEMP 97.7; O2SAT 99
[2024-09-29] MEDS: haloperidoL 5 MG TABLET PO PRN (10:40)
[2024-09-29 16:36] VITALS: BP 137/104; PULSE 65
[2024-09-29 22:07] VITALS: BP 126/74; PULSE 81; RESP 19; TEMP 98.1; O2SAT 97
[2024-09-30 08:29] VITALS: BP 133/94; PULSE 67; RESP 18; TEMP 97.9; O2SAT 99
[2024-09-30 16:32] VITALS: BP 131/79; PULSE 68
[2024-09-30 21:17] VITALS: BP 144/73; PULSE 63; RESP 18; TEMP 97.8; O2SAT 97
[2024-10-01 09:05] VITALS: BP 136/74; PULSE 62; RESP 18; TEMP 98; O2SAT 95
[2024-10-01 16:46] VITALS: BP 119/77; PULSE 68
[2024-10-01 21:46] VITALS: BP 114/62; PULSE 69; RESP 18; TEMP 97.5; O2SAT 97
[2024-10-02 12:13] VITALS: RESP 17; TEMP 98
[2024-10-02 13:13] VITALS: RESP 17; TEMP 97.9
== END 2024-10-02 17:15 | DRG 885 ==
LOC: 3EI 15:22 → 3EX 09-25 00:15
PROVIDERS: ADMIT Psychiatry & Neurology Child & Adolescent Psychiatry; ATTEND Psychiatry & Neurology Child & Adolescent Psychiatry
PROC: GZHZZZZ Group Psychotherapy (ICD-10-PCS; principal; 2024-09-14)
PROC: GZ52ZZZ Individual Psychotherapy, Cognitive (ICD-10-PCS; 2024-09-14)
PROC: GZ56ZZZ Individual Psychotherapy, Supportive (ICD-10-PCS; 2024-09-14)
DX: F33.2 Major depressive disorder, recurrent severe without psychotic features (principal); G40.909 Epilepsy, unspecified, not intractable, without status epilepticus; I10 Essential (primary) hypertension; F41.9 Anxiety disorder, unspecified; K21.9 Gastro-esophageal reflux disease without esophagitis; F60.9 Personality disorder, unspecified; Z89.512 Acquired absence of left leg below knee; M79.606 Pain in leg, unspecified
CPT/HCPCS: 80053; 80061; 83036; 84443; 85025; 87081; 93970; 97162; 97530; G0378

== ENCOUNTER 2024-10-04 15:28 | Emergency (ER) | payer MEDICARE, OTHER ==
[~2024-10-04] VITALS: Ht 165.1 cm; Wt 71.0 kg
[~2024-10-04 15:28] MED LIST changes: -CARV-165 PO; -CYCL-448 PO; -FERR325T27 PO; -OMEP-148 PO
[2024-10-04 16:29] VITALS: TEMP 97.6
[2024-10-04] MEDS ORDERED: ATOR40TA71 PO (17:31)
[2024-10-04] MEDS ORDERED: PANT40TA54 PO (17:31)
[2024-10-04] MEDS ORDERED: DIVA-85 PO (17:31)
[2024-10-04] MEDS: haloperidoL 5 MG TABLET PO ONE (17:59)
[2024-10-04] MEDS: LORazepam 1 MG TABLET PO ONE (17:59)
[2024-10-04 20:45] VITALS: BP 141/89; PULSE 77; RESP 18; O2SAT 97
== END 2024-10-04 21:24 ==
LOC: EMS 15:28
DX: R45.1 Restlessness and agitation (principal); F10.129 Alcohol abuse with intoxication, unspecified; F41.9 Anxiety disorder, unspecified; M19.90 Unspecified osteoarthritis, unspecified site; F32.A Depression, unspecified; I10 Essential (primary) hypertension; F12.90 Cannabis use, unspecified, uncomplicated; F17.210 Nicotine dependence, cigarettes, uncomplicated; Z79.899 Other long term (current) drug therapy; Z89.512 Acquired absence of left leg below knee; Y90.9 Presence of alcohol in blood, level not specified
CPT/HCPCS: 99284; Z7502; Z7610

== ENCOUNTER 2024-10-05 13:54 | Emergency (ER) | payer MEDICARE, OTHER ==
[~2024-10-05] VITALS: Ht 167.6 cm; Wt 72.7 kg
[~2024-10-05 13:54] MED LIST changes: +ATOR40TA71 PO; +DIVA-85 PO; +PANT40TA54 PO
[2024-10-05 14:59] VITALS: BP 140/81; PULSE 100; RESP 19; TEMP 97.5; O2SAT 97
[2024-10-05] MEDS ORDERED: LevETIRAcetam 500 MG TABLET PO ONE (15:15)
[2024-10-05] MEDS: DiphenhydrAMINE HCL 25 MG CAPSULE PO ONE (15:33)
[2024-10-05] MEDS: haloperidoL 5 MG TABLET PO ONE (15:33)
[2024-10-05] MEDS: LORazepam 2 MG TABLET PO ONE (15:33)
== END 2024-10-05 16:26 ==
LOC: EMS 13:55
DX: R45.1 Restlessness and agitation (principal); I10 Essential (primary) hypertension; G40.909 Epilepsy, unspecified, not intractable, without status epilepticus; F12.90 Cannabis use, unspecified, uncomplicated; F41.9 Anxiety disorder, unspecified; F17.210 Nicotine dependence, cigarettes, uncomplicated; Z89.512 Acquired absence of left leg below knee; Z87.820 Personal history of traumatic brain injury; Z79.899 Other long term (current) drug therapy
CPT/HCPCS: 99284; Z7502; Z7610

== ENCOUNTER 2024-10-05 17:42 | Inpatient (IN) | payer MEDICARE, MEDICAID ==
[~2024-10-05] VITALS: Ht 180.3 cm; Wt 73.5 kg
[2024-10-05] MEDS ORDERED: ZOLPIDEM TARTRATE 10 MG TABLET PO PRN (19:45)
[2024-10-05 21:01] LABS: PLATELET COUNT (AUTO) 238 K/uL (150-450); RED BLOOD CELL COUNT(AUTO) 5.07 MIL/uL (4.50-5.90); RED CELL DISTRIBUTION WIDTH 24.7 % (11.5-14.5); WHITE BLOOD COUNT (AUTO) 6.1 K/uL (4.5-11.0)
[2024-10-05 21:10] LABS: CALCIUM, TOTAL 8.8 mg/dL (8.8-10.5); CREATININE 0.96 mg/dL (0.60-1.30); GLOMERULAR FILTR. RATE CALC > 60 mL/min (>60); GLUCOSE,RANDOM 142 mg/dL (70-110); SODIUM SERUM 139 mmol/L (136-145); UREA NITROGEN, BLOOD 13 mg/dL (7-18)
[2024-10-05 21:19] LABS: ALCOHOL, BLOOD (SERUM) < 3 mg/dL (0-10)
[2024-10-05 21:20] LABS: LACTIC ACID 1.1 mmol/L (0.4-2.0)
[2024-10-05 21:21] LABS: RBC MORPHOLOGY COMMENT ABNORMAL RBC MORPH; TROPONIN I-HIGH SENSITIVITY 8 ng/L (<76)
[2024-10-05] MEDS: POTASSIUM CHLORIDE 20 MEQ ER TABLET PO ONE (22:43)
[2024-10-06 14:41] LABS: APPEARANCE,URINE CLEAR (CLEAR); GLUCOSE, URINE (UA) NEGATIVE (NEGATIVE); LEUKOCYTE ESTERASE ,URINE NEGATIVE (NEGATIVE); NITRATE,URINE NEGATIVE (NEGATIVE); OCCULT BLOOD,URINE NEGATIVE (NEGATIVE); PH,URINE DRUG SCREEN 6.5 (5.0-8.0); SPECIFIC GRAVITIY, URINE 1.019 (1.003-1.030)
[2024-10-06 14:48] LABS: ALCOHOL, URINE DRUG SCREEN NEGATIVE (NEGATIVE); AMPHET/METH SCREEN,URINE NEGATIVE (NEGATIVE); BARBITURATE SCREEN, URINE NEGATIVE (NEGATIVE); CANNABINOID SCREEN,URINE NEGATIVE (NEGATIVE); COCAINE SCREEN,URINE NEGATIVE (NEGATIVE); METHADONE SCREEN, URINE NEGATIVE (NEGATIVE)
[2024-10-06] MEDS: DIVALPROEX SODIUM 250 MG ER TABLET PO SCH (16:25)
[2024-10-06] MEDS: ASPIRIN 81 MG CHEWABLE TABLET PO SCH (16:25)
[2024-10-06 18:30] VITALS: O2SAT 97
[2024-10-06 18:37] LABS: COVID AG,FIA SOURCE NASAL SWAB
[2024-10-06 18:56] LABS: SARS-COV2 (COVID) ANTIGEN,FIA Negative (Negative)
[2024-10-06 21:59] VITALS: BP 145/96; PULSE 64; RESP 18; TEMP 98; O2SAT 100
[2024-10-06] MEDS ORDERED: PNEUMOCOCCAL VACCINE POLYVALENT 0.5 ML SYRINGE [PPSV23] IM. ONE (22:45)
[2024-10-07] MEDS ORDERED: MAGNESIUM HYDROXIDE SUSPENSION 30 ML UDCUP PO PRN (07:45)
[2024-10-07] MEDS ORDERED: PETROLATUM,WHITE 28 GM JELLY TP PRN (07:45)
[2024-10-07] MEDS ORDERED: MAG HYDROX/ALUMINUM HYD/SIMETH ES 30 ML SUSPENSION UDCUP PO PRN (07:45)
[2024-10-07] MEDS ORDERED: ONDANSETRON 4 MG TABLET PO PRN (07:45)
[2024-10-07] MEDS ORDERED: ALBUTEROL SULFATE HFA 90 MCG/PUFF 8 GM INHALER IH PRN (07:45)
[2024-10-07] MEDS ORDERED: OMEPRAZOLE 20 MG CAPSULE PO PRN (07:45)
[2024-10-07] MEDS ORDERED: BENZOCAINE/MENTHOL [CEPACOL] LOZENGE PO PRN (07:45)
[2024-10-07] MEDS ORDERED: BACITRACIN 28 GM OINTMENT TP PRN (07:45)
[2024-10-07] MEDS ORDERED: DOCUSATE SODIUM 100 MG CAPSULE PO PRN (07:45)
[2024-10-07] MEDS: PANTOPRAZOLE SODIUM 40 MG DR TABLET PO SCH (11:02)
[2024-10-07] MEDS: DULoxetine HCL 60 MG CAPSULE PO SCH (11:02)
[2024-10-07] MEDS: POTASSIUM CHLORIDE 20 MEQ ER TABLET PO ONE (11:02)
[2024-10-07] MEDS: ATORVASTATIN CALCIUM 40 MG TABLET PO SCH (11:02)
[2024-10-07 12:51] VITALS: BP 133/88; PULSE 71; RESP 18; TEMP 98.2; O2SAT 100
[2024-10-07] MEDS: DIVALPROEX SODIUM 250 MG ER TABLET PO SCH (16:38)
[2024-10-07 21:35] VITALS: BP 136/70; PULSE 68; RESP 19; TEMP 97.4; O2SAT 98
[2024-10-08 10:38] VITALS: BP 132/78; PULSE 64; RESP 17; TEMP 97.4; O2SAT 98
[2024-10-08 17:30] VITALS: BP 140/98; PULSE 98; RESP 18; TEMP 97.7; O2SAT 97
[2024-10-08 19:24] VITALS: BP 129/69; PULSE 69; RESP 19; TEMP 97.6; O2SAT 99
[2024-10-08] MEDS: IBUPROFEN 600 MG TABLET PO PRN (19:24)
[2024-10-08 21:01] VITALS: BP 140/89; PULSE 78; RESP 17; TEMP 98.1; O2SAT 98
[2024-10-09 09:22] VITALS: BP 139/90; PULSE 79; RESP 18; TEMP 98.3; O2SAT 97
[2024-10-09] MEDS: ATORVASTATIN CALCIUM 40 MG TABLET PO SCH (09:38)
[2024-10-09] MEDS: ASPIRIN 81 MG CHEWABLE TABLET PO SCH (09:38)
[2024-10-09] MEDS: PANTOPRAZOLE SODIUM 40 MG DR TABLET PO SCH (09:38)
[2024-10-09 23:34] VITALS: BP 100/58; PULSE 77; RESP 16; TEMP 97.7; O2SAT 97
[2024-10-10 22:26] VITALS: BP 129/73; PULSE 97; RESP 18; TEMP 98.1; O2SAT 98
[2024-10-11 14:46] VITALS: BP 123/99; PULSE 76; RESP 18; TEMP 97.5; O2SAT 97
[2024-10-11 18:52] VITALS: BP 135/83; PULSE 93; RESP 16; TEMP 98.2; O2SAT 96
[2024-10-11] MEDS: LOPERAMIDE HCL 2 MG CAPSULE PO PRN (20:36)
[2024-10-11 21:15] VITALS: BP 130/72; PULSE 67; RESP 16; TEMP 98.2; O2SAT 98
[2024-10-11 21:53] VITALS: BP 130/72; PULSE 67; RESP 16; TEMP 98.2; O2SAT 98
[2024-10-12 02:10] VITALS: BP 128/70; PULSE 78; RESP 17; TEMP 98.2; O2SAT 98
[2024-10-12 14:48] VITALS: BP 136/84; PULSE 79; RESP 17; TEMP 98.4; O2SAT 98
[2024-10-12] MEDS: ACETAMINOPHEN 325 MG TABLET PO PRN (14:48)
[2024-10-12 16:03] VITALS: BP 140/94; PULSE 71; RESP 18; TEMP 98.3; O2SAT 98
[2024-10-12 22:36] VITALS: RESP 17
[2024-10-13 14:42] VITALS: RESP 18
[2024-10-13 21:31] VITALS: BP 117/88; PULSE 75; RESP 17; TEMP 97.7; O2SAT 95
[2024-10-14 11:04] VITALS: BP 113/76; PULSE 84; RESP 18; TEMP 97; O2SAT 99
[2024-10-14 21:45] VITALS: BP 149/89; PULSE 69; RESP 19; TEMP 97.5; O2SAT 98
[2024-10-14 21:48] VITALS: BP 149/89; PULSE 69; RESP 19; TEMP 97.5; O2SAT 98
[2024-10-15 09:30] VITALS: BP 135/98; PULSE 71; RESP 18; TEMP 98.5; O2SAT 98
[2024-10-15 23:09] VITALS: BP 135/86; PULSE 77; RESP 18; TEMP 97.5; O2SAT 98
[2024-10-16 20:29] VITALS: BP 129/80; PULSE 69; RESP 18; TEMP 98.1; O2SAT 97
[2024-10-17 15:01] VITALS: BP 132/86; PULSE 61; RESP 17; TEMP 97.3; O2SAT 99
[2024-10-17 16:36] VITALS: RESP 18
[2024-10-17 17:35] VITALS: RESP 18
[2024-10-17 21:04] VITALS: BP 147/82; PULSE 71; RESP 16; TEMP 98.1; O2SAT 98
[2024-10-18 08:32] VITALS: BP 123/84; PULSE 17; RESP 18; TEMP 97.7; O2SAT 97
[2024-10-18 21:38] VITALS: BP 137/88; PULSE 59; RESP 16; TEMP 98.1; O2SAT 97
[2024-10-19 09:03] VITALS: BP 125/66; PULSE 78; RESP 18; TEMP 98.3; O2SAT 97
[2024-10-19 23:39] VITALS: RESP 18
[2024-10-20 09:15] VITALS: BP 114/82; PULSE 90; RESP 18; TEMP 98.2; O2SAT 96
[2024-10-20 20:44] VITALS: BP 115/89; PULSE 70; RESP 17; TEMP 98.7; O2SAT 96
[2024-10-21 09:00] VITALS: BP 133/81; PULSE 70; RESP 18; TEMP 97.4; O2SAT 98
[2024-10-21 20:39] VITALS: BP 140/90; PULSE 74; RESP 18; TEMP 98; O2SAT 97
[2024-10-22 09:18] VITALS: BP 131/74; PULSE 65; RESP 18; TEMP 97.8; O2SAT 99
[2024-10-22] MEDS ORDERED: PHENYLEPHRINE/SHK LV/MIN OIL/PET 57 GM OINTMENT TP PRN (16:30)
[2024-10-22 21:02] VITALS: BP 147/78; PULSE 66; RESP 19; TEMP 97.3; O2SAT 96
[2024-10-23 09:05] VITALS: BP 137/81; PULSE 72; RESP 18; TEMP 97.5; O2SAT 100
[2024-10-23 20:32] VITALS: BP 146/96; PULSE 69; RESP 18; TEMP 98.6; O2SAT 97
[2024-10-24 10:12] VITALS: BP 131/98; PULSE 71; RESP 17; TEMP 97; O2SAT 99
[2024-10-24 21:43] VITALS: BP 137/86; PULSE 69; RESP 16; TEMP 97; O2SAT 94
[2024-10-25 12:20] VITALS: BP 131/92; PULSE 74; RESP 18; TEMP 97.7; O2SAT 96
[2024-10-25 20:57] VITALS: BP 133/84; PULSE 69; RESP 18; TEMP 97.5; O2SAT 98
[2024-10-26 09:23] VITALS: BP 135/86; PULSE 71; RESP 16; TEMP 97.1; O2SAT 97
[2024-10-26 10:09] VITALS: BP 135/86; PULSE 71; RESP 16; TEMP 97.1; O2SAT 97
[2024-10-26 11:12] VITALS: RESP 18
[2024-10-26 22:08] VITALS: BP 134/83; PULSE 72; RESP 18; TEMP 97.5; O2SAT 98
[2024-10-27 10:33] VITALS: BP 131/97; PULSE 75; RESP 18; TEMP 97.7; O2SAT 96
[2024-10-27 22:28] VITALS: BP 134/104; PULSE 67; RESP 16; TEMP 98; O2SAT 98
[2024-10-28 10:29] VITALS: BP 146/89; PULSE 75; RESP 18; TEMP 97.8; O2SAT 98
[2024-10-28 21:53] VITALS: BP 128/96; PULSE 67; RESP 18; TEMP 97.3; O2SAT 96
[2024-10-29 10:16] VITALS: BP 149/105; PULSE 91; RESP 17; TEMP 97.2; O2SAT 98
[2024-10-29 21:38] VITALS: BP 152/90; PULSE 64; RESP 17; TEMP 97; O2SAT 94
[2024-10-31 08:42] VITALS: RESP 16
[2024-10-31 10:20] VITALS: BP 136/91; PULSE 67; RESP 18; TEMP 97.8
[2024-10-31 23:17] VITALS: BP 150/80; PULSE 70; RESP 18; TEMP 98; O2SAT 98
[2024-11-01 16:30] VITALS: BP 132/82; PULSE 67; RESP 18; TEMP 97.8; O2SAT 98
[2024-11-01 21:29] VITALS: BP 139/86; PULSE 70; RESP 18; TEMP 97.5; O2SAT 98
[2024-11-02 09:56] VITALS: BP 133/74; PULSE 78; RESP 18; TEMP 98.2; O2SAT 99
[2024-11-02 21:35] VITALS: BP 122/83; PULSE 60; RESP 18; O2SAT 98
[2024-11-03 09:00] VITALS: BP 134/79; PULSE 74; RESP 18; TEMP 97.6; O2SAT 99
[2024-11-03 23:17] VITALS: RESP 18
[2024-11-04 08:00] VITALS: BP 136/97; PULSE 89; RESP 16; TEMP 98; O2SAT 96
[2024-11-04 21:17] VITALS: RESP 17; TEMP 97.8
[2024-11-05 09:58] VITALS: RESP 18
[2024-11-05 21:33] VITALS: BP 137/87; PULSE 65; RESP 19; TEMP 98.7; O2SAT 96
[2024-11-05 21:45] VITALS: BP 137/87; PULSE 65; RESP 19; TEMP 98.7; O2SAT 96
[2024-11-05 22:48] VITALS: RESP 18
[2024-11-06 10:15] VITALS: BP 148/96; PULSE 66; RESP 18; TEMP 98.4; O2SAT 97
[2024-11-06 20:26] VITALS: BP 124/91; PULSE 66; RESP 18; TEMP 97.1; O2SAT 98
[2024-11-07 20:42] VITALS: BP 130/76; PULSE 64; RESP 18; TEMP 97.7; O2SAT 98
[2024-11-08 10:00] VITALS: BP 131/88; PULSE 59; RESP 18; TEMP 97.5; O2SAT 99
[2024-11-08 20:00] VITALS: BP 123/78; PULSE 60; RESP 18; TEMP 97.1; O2SAT 100
[2024-11-09 10:30] VITALS: BP 129/92; PULSE 68; RESP 18; TEMP 97.9; O2SAT 99
[2024-11-09 21:27] VITALS: BP 109/62; PULSE 75; RESP 18; TEMP 97.4; O2SAT 97
[2024-11-10 13:16] VITALS: BP 131/82; PULSE 62; RESP 18; TEMP 97.9; O2SAT 97
[2024-11-10 23:24] VITALS: RESP 18; TEMP 97.7
[2024-11-11 13:17] VITALS: RESP 18
[2024-11-11 21:17] VITALS: BP 132/88; PULSE 70; RESP 18; TEMP 98.3; O2SAT 100
[2024-11-12 09:04] VITALS: BP 125/85; PULSE 99; RESP 18; TEMP 97.3; O2SAT 100
== END 2024-11-12 16:10 | DRG 885 ==
LOC: EMS 17:42 → 3EX 10-06 21:26
PROVIDERS: ADMIT Psychiatry & Neurology Child & Adolescent Psychiatry; ATTEND Psychiatry & Neurology Child & Adolescent Psychiatry
PROC: GZHZZZZ Group Psychotherapy (ICD-10-PCS; principal; 2024-10-07)
PROC: GZ52ZZZ Individual Psychotherapy, Cognitive (ICD-10-PCS; 2024-10-07)
PROC: GZ56ZZZ Individual Psychotherapy, Supportive (ICD-10-PCS; 2024-10-07)
DX: F31.4 Bipolar disorder, current episode depressed, severe, without psychotic features (principal); F25.9 Schizoaffective disorder, unspecified; G40.909 Epilepsy, unspecified, not intractable, without status epilepticus; I10 Essential (primary) hypertension; F10.20 Alcohol dependence, uncomplicated; Z20.822 Contact with and (suspected) exposure to COVID-19; G47.00 Insomnia, unspecified; E87.6 Hypokalemia; F41.9 Anxiety disorder, unspecified; K21.9 Gastro-esophageal reflux disease without esophagitis; Z75.1 Person awaiting admission to adequate facility elsewhere; Z87.820 Personal history of traumatic brain injury; Z87.891 Personal history of nicotine dependence; Z89.512 Acquired absence of left leg below knee
CPT/HCPCS: 80048; 80164; 80307; 81001; 83605; 83690; 83880; 84132; 84484; 85025; 87081; 99285; G0378; G0480